=== PATIENT | male | born 1955 | race Caucasian/White ===

== ENCOUNTER → 2019-08-25 | Outpatient (CLI) | payer OTHER | LOC: M.RAD 13:58 | DX: R05 Cough (principal) ==

== ENCOUNTER → 2019-09-06 | Outpatient (CLI) | payer OTHER ==
[2019-09-06 08:46] LABS: CREATININE 1.1 mg/dL (0.6-1.3)
== END ==
LOC: M.LAB 08:25 → M.CT 09:30
PROVIDERS: Family Medicine
DX: I25.10 Atherosclerotic heart disease of native coronary artery without angina pectoris (principal); K44.9 Diaphragmatic hernia without obstruction or gangrene; R05 Cough; R93.89 Abnormal findings on diagnostic imaging of other specified body structures; Z95.5 Presence of coronary angioplasty implant and graft